=== PATIENT | female | born 1990 | race American Indian/Alaskan Native ===

== ENCOUNTER 2016-10-12 22:41 | Emergency (ER) | payer OTHER ==
--- NOTE | 2016-10-13 00:36 | XRay Report ---
FINAL REPORT EXAM: XR SHOULDER 2 LT HISTORY: LEFT SHOULDER PAIN TECHNIQUE: Left shoulder three views 3 images PRIORS: None. FINDINGS: Visualized portion of the left lung appears clear. Bone mineralization appears within normal limits. No acute fracture or subluxation is identified. No gross abnormality is seen in the visualized soft tissues. IMPRESSION: 1. No acute osseous abnormality is identified.
--- NOTE | 2016-10-13 00:49 | XRay Report ---
FINAL REPORT EXAM: XR SPINE CERVICAL 2-3V HISTORY: NECK PAIN TECHNIQUE: Cervical spine three views 3 images PRIORS: None. FINDINGS: Prevertebral soft tissues appear within normal limits. No acute fracture or anterolisthesis is identified. Lateral masses of C1 and C2 appear to have normal articulation. There is slight reversal of cervical lordosis. This may be secondary to patient positioning.Visualized portion of the lungs are clear. There is lucency associated with the right lower posterior molar tooth. IMPRESSION: 1. No acute osseous abnormality is identified. 2. Possible dental caries associated with the right lower posterior molar tooth.
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
[2016-10-13] MEDS ORDERED: MARCAINE 0.5% INFILTRATI ONE (01:39)
[2016-10-13] MEDS ORDERED: BOOSTRIX IM ONE (01:39)
[2016-10-13] MEDS ORDERED: NACL 0.9% IR ONE (01:39)
[2016-10-13] MEDS ORDERED: TYLENOL #3 PO ONE (01:59)
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
[2016-10-13 06:23] VITALS: BP 118/67
== END 2016-10-13 05:45 | disposition home or self-care (01) ==
LOC: ED 22:41
DX: S01.81XA Laceration without foreign body of other part of head, initial encounter (principal); S16.1XXA Strain of muscle, fascia and tendon at neck level, initial encounter; G44.319 Acute post-traumatic headache, not intractable; M25.512 Pain in left shoulder; F17.200 Nicotine dependence, unspecified, uncomplicated; Z91.018 Allergy to other foods
CPT/HCPCS: 70450; 72040; 72125; 90471; 90715